=== PATIENT | female | born 1960 | race African-American/Black ===

== ENCOUNTER 2019-10-07 11:55 | Observation (INO) ==
[2019-10-07] MEDS ORDERED: ONDANSETRON 4 MG/2 ML VIAL IV STA (12:49)
[2019-10-07] MEDS ORDERED: ORPHENADRINE 60 MG/2 ML VIAL IV STA (12:49)
[2019-10-07] MEDS ORDERED: methylPREDNISolone SOD SUC 125 MG/2 ML VIAL IV STA (12:49)
[2019-10-07] MEDS ORDERED: AZITHROMYCIN INJ 500 MG in SODIUM CHLORIDE 0.9% 250 ML IV STA (12:49)
[2019-10-07] MEDS ORDERED: KETOROLAC 30 MG/1 ML VIAL IV STA (12:49)
[2019-10-07] MEDS ORDERED: ALBUTEROL NEB SOLN 5 MG/ML 20 ML/BOTTLE CONT NEB SCH (13:00)
[2019-10-07 13:34] LABS: Apearance,Urine CLOUDY (Clear); Bacteria,Urine Few /HPF (Few); Bilirubin,Urine Negative (Negative); Blood, Urine Moderate mg/dL (Negative); Glucose,Urine (UA) >=500 mg/dL (Negative); Hyaline Casts,Urine 1 /LPF (0-3); Ketones,Urine Negative (Negative); Mucus,Urine Occasional /LPF (Occasional); Nitrite,Urine Positive (Negative); Protein,Urine 30 MG/DL; RBC,Urine 12 /HPF (0-4); Squamous Epithelial Cell,Urine Occasional /HPF (0-10); Urine Color Yellow (Yellow); Urine Specific Gravity 1.009 (1.001-1.035); Urine Urobilinogen < 2.0 EU/DL (0.2-1.0); WBC,Urine 379 /HPF (0-6)
[2019-10-07 13:45] LABS: Barbiturates Screen,Urine Negative (Negative); Benzodiazepines Screen,Urine Negative (Negative); Cannabinoid Screen,Urine Negative (Negative); Opiate Screen,Urine Negative (Negative); Phencyclidine Screen,Urine Negative (Negative)
[2019-10-07 13:51] LABS: Basophils % 0.2 % (0.0-0.8); Hematocrit 44.3 VOL% (35.7-47.0); Hemoglobin 14.2 GM/DL (12.0-16.0); Immature Granulocytes % 0.5 %; Immature Granulocytes Absolute 0.06 #; Lymphocytes # 2.2 10*3/uL (1.4-4.0); Lymphocytes % 16.9 % (21.3-54.2); Mean Corpuscular HGB Conc 32.1 GM/DL (32-36); Mean Corpuscular Volume 95.7 FL (87-102); Mean Platelet Volume 9.8 FL (9.6-12.0); Monocytes % 7.4 % (1.7-12.7); Platelet Count 260 T/CUMM (130-400); Red Blood Count 4.63 MC/CUMM (3.8-5.5); Red Cell Distribution Width 13.5 % (9.3-17.3); White Blood Count 13.2 T/CUMM (4-12)
[2019-10-07] MEDS ORDERED: FUROSEMIDE 40 MG/4 ML VIAL IV STA (13:58)
[2019-10-07 14:05] LABS: PT Patient Result 10.7 SECS (9.6-12.2)
[2019-10-07 14:16] LABS: Alanine Aminotransferase 20 U/L (13-56); Albumin 3.1 G/DL (3.4-5.0); Alkaline Phosphatase 118 U/L (45-117); Aspartate Amino Transferase 10 U/L (0-37); Blood Urea Nitrogen 11 MG/DL (7-18); Calcium 9.2 MG/DL (8.5-10.1); Estimated Glom Filtration Rate 104 ML/MIN; Glucose 244 MG/DL (74-106); Osmolality,Calculated 276.1 MOS/KG (273-304); Total Protein 7.9 G/DL (6.4-8.3); Troponin I < 0.015 NG/ML (0.00-0.045)
[2019-10-07] MEDS ORDERED: ZALEPLON 5 MG CAPSULE PO PRN (15:50)
[2019-10-07] MEDS ORDERED: BISACODYL 5 MG TABLET PO PRN (15:50)
[2019-10-07] MEDS ORDERED: ALBUTEROL 2.5 MG/3 ML NEB RESP TX PRN (15:50)
[2019-10-07] MEDS ORDERED: guaiFENesin/DM ER 600-30 MG TABLET PO PRN (15:50)
[2019-10-07] MEDS ORDERED: DEXTROSE 10% 250 ML BAG IV PRN (15:50)
[2019-10-07] MEDS ORDERED: GLUCAGON 1 MG VIAL IM PRN (15:50)
[2019-10-07] MEDS ORDERED: NICOTINE 21 MG/24 HR PATCH TRANSDERM PRN (15:50)
[2019-10-07] MEDS ORDERED: ALUMINUM/MAGNES/SIMETH MAX STR 30 ML UDCUP PO PRN (15:50)
[2019-10-07] MEDS ORDERED: ONDANSETRON 4 MG/2 ML VIAL IV PRN (15:50)
[2019-10-07] MEDS ORDERED: PROMETHAZINE 25 MG TABLET PO PRN (16:14)
[2019-10-07] MEDS ORDERED: tiZANidine 4 MG TABLET PO PRN (16:14)
[2019-10-07] MEDS ORDERED: POTASSIUM CHLORIDE 20 MEQ/15 ML UDCUP PO ONE (16:27)
[2019-10-07] MEDS ORDERED: MAGNESIUM SULF RIDER 2 GM in PREMIX 1 EACH IV ONE (16:27)
[2019-10-07] MEDS: cefTRIAXone 1,000 MG in SYRINGE 1 EACH IV SCH (18:26)
[2019-10-07] MEDS: ENOXAPARIN 40 MG/0.4 ML SYRINGE SUBCUT SCH (18:28)
[2019-10-07] MEDS: INSULIN REGULAR 100 UNIT/ML SUBCUT SCH ×2 (18:29→21:00)
[2019-10-07] MEDS: SODIUM CHLORIDE 0.9% 1,000 ML IV SCH (18:30)
[2019-10-07] MEDS: ALBUTEROL/IPRATROPIUM 3 ML NEB RESP TX SCH (20:10)
[2019-10-07] MEDS: buPROPion SR 150 MG TABLET PO SCH (20:59)
[2019-10-07] MEDS: carvediloL 25 MG TABLET PO SCH (20:59)
[2019-10-07] MEDS: PREGABALIN 75 MG CAPSULE PO SCH (20:59)
[2019-10-07] MEDS: methylPREDNISolone SOD SUC 40 MG/1 ML VIAL IV SCH (22:55)
[2019-10-07] MEDS ORDERED: INSULIN REGULAR 100 UNIT/ML SUBCUT ONE (23:11)
[2019-10-08] MEDS: ALBUTEROL/IPRATROPIUM 3 ML NEB RESP TX SCH ×4 (00:12→19:45)
[2019-10-08 04:35] LABS: Basophils % 0.2 % (0.0-0.8); Hematocrit 41.7 VOL% (35.7-47.0); Hemoglobin 13.3 GM/DL (12.0-16.0); Immature Granulocytes % 0.5 %; Immature Granulocytes Absolute 0.05 #; Lymphocytes # 1.2 10*3/uL (1.4-4.0); Lymphocytes % 10.9 % (21.3-54.2); Mean Corpuscular HGB Conc 31.9 GM/DL (32-36); Mean Corpuscular Volume 96.8 FL (87-102); Monocytes % 2.5 % (1.7-12.7); Neutrophils % 85.9 % (38.7-73.9); Platelet Count 253 T/CUMM (130-400); Red Blood Count 4.31 MC/CUMM (3.8-5.5); Red Cell Distribution Width 13.2 % (9.3-17.3); White Blood Count 10.9 T/CUMM (4-12)
[2019-10-08 05:05] LABS: Albumin 2.8 G/DL (3.4-5.0); Bilirubin,Total 1.5 MG/DL (0.2-1.0); Calcium 8.6 MG/DL (8.5-10.1); Osmolality,Calculated 300.2 MOS/KG (273-304); Risk Ratio 5.2; Total Protein 7.5 G/DL (6.4-8.3); VLDL CHOLESTEROL 47.6 MG/DL
[2019-10-08] MEDS ORDERED: INSULIN REGULAR 100 UNIT/ML SUBCUT ONE (06:12)
[2019-10-08] MEDS: methylPREDNISolone SOD SUC 40 MG/1 ML VIAL IV SCH ×2 (06:28→17:46)
[2019-10-08] MEDS ORDERED: FUROSEMIDE 80 MG TABLET PO SCH (08:00)
[2019-10-08] MEDS ORDERED: INSULIN GLARGINE 100 UNIT/ML SUBCUT SCH ×3 (09:00→21:00)
[2019-10-08] MEDS ORDERED: Semaglutide [Ozempic] 1 MG SUBCUT SCH (09:00)
[2019-10-08] MEDS ORDERED: metFORMIN 500 MG TABLET PO SCH (09:00)
[2019-10-08] MEDS: INSULIN REGULAR 100 UNIT/ML SUBCUT SCH ×4 (09:03→21:37)
[2019-10-08] MEDS: DILTIAZEM CD 120 MG CAPSULE PO SCH (09:08)
[2019-10-08] MEDS: buPROPion SR 150 MG TABLET PO SCH ×2 (09:08→21:35)
[2019-10-08] MEDS: ASPIRIN EC 81 MG TABLET PO SCH (09:08)
[2019-10-08] MEDS: OLMESARTAN 20 MG TABLET PO SCH (09:08)
[2019-10-08] MEDS: carvediloL 25 MG TABLET PO SCH ×2 (09:08→17:42)
[2019-10-08] MEDS: PREGABALIN 75 MG CAPSULE PO SCH ×3 (09:08→21:35)
[2019-10-08] MEDS: oxyCODONE/ACETAMINOPHEN 5-325 MG TABLET PO PRN ×2 (09:14→15:23)
[2019-10-08] MEDS: SODIUM CHLORIDE 0.9% 1,000 ML IV SCH ×2 (11:18→18:09)
[2019-10-08] MEDS ORDERED: AZITHROMYCIN INJ 500 MG in SODIUM CHLORIDE 0.9% 250 ML IV SCH (14:30)
[2019-10-08] MEDS: FENOFIBRATE 145 MG TABLET PO SCH (16:07)
[2019-10-08] MEDS: ENOXAPARIN 40 MG/0.4 ML SYRINGE SUBCUT SCH (17:42)
[2019-10-08] MEDS: cefTRIAXone 1,000 MG in SYRINGE 1 EACH IV SCH (17:42)
[2019-10-08] MEDS ORDERED: ATORVASTATIN 40 MG TABLET PO SCH (21:00)
[2019-10-09] MEDS: SODIUM CHLORIDE 0.9% 1,000 ML IV SCH (01:40)
[2019-10-09] MEDS: ALBUTEROL/IPRATROPIUM 3 ML NEB RESP TX SCH ×2 (01:42→07:06)
[2019-10-09] MEDS: methylPREDNISolone SOD SUC 40 MG/1 ML VIAL IV SCH (05:50)
[2019-10-09] MEDS: carvediloL 25 MG TABLET PO SCH (08:29)
[2019-10-09] MEDS: ASPIRIN EC 81 MG TABLET PO SCH (08:29)
[2019-10-09] MEDS: DILTIAZEM CD 120 MG CAPSULE PO SCH (08:29)
[2019-10-09] MEDS: PREGABALIN 75 MG CAPSULE PO SCH (08:30)
[2019-10-09] MEDS: INSULIN REGULAR 100 UNIT/ML SUBCUT SCH ×2 (08:30→12:07)
[2019-10-09] MEDS: OLMESARTAN 20 MG TABLET PO SCH (08:30)
[2019-10-09] MEDS: FENOFIBRATE 145 MG TABLET PO SCH (08:30)
[2019-10-09] MEDS: buPROPion SR 150 MG TABLET PO SCH (08:30)
[2019-10-09] MEDS: oxyCODONE/ACETAMINOPHEN 5-325 MG TABLET PO PRN (08:38)
[2019-10-09 10:00] LABS: Calcium 8.3 MG/DL (8.5-10.1); Osmolality,Calculated 291.2 MOS/KG (273-304)
[2019-10-09 13:09] VITALS: BP 189/96
== END 2019-10-09 13:32 | disposition home or self-care (01) ==
LOC: N.EDINP 11:55 → N.ED 11:55 → N.EDINP 17:02 → N.2W 17:18 → N.2E 10-08 11:26
PROVIDERS: ADMIT Internal Medicine; ATTEND Internal Medicine